=== PATIENT | male | born 1945 | race Caucasian/White ===

== ENCOUNTER 2017-10-22 08:46 | Emergency (ER) | payer MEDICARE, OTHER ==
[~2017-10-22] VITALS: Ht 172.7 cm; Wt 59.0 kg
[2017-10-22 09:38] VITALS: BP 142/72
[2017-10-22] MEDS ORDERED: KETOROLAC TROMETH 60MG/2ML VIAL IM ONE (10:30)
== END 2017-10-22 10:53 | disposition home or self-care (01) ==
LOC: ER 08:46 → EDBD 08:46 → ER 10:53
DX: G89.29 Other chronic pain (principal); M54.2 Cervicalgia; I10 Essential (primary) hypertension; Z76.0 Encounter for issue of repeat prescription
CPT/HCPCS: 96372; 99283; J1885

== ENCOUNTER 2017-12-22 16:56 | Inpatient (IN) | payer MEDICARE ==
[~2017-12-22] VITALS: Ht 180.3 cm; Wt 46.2 kg
[2017-12-22 18:33] LABS: Mean Corpuscular Hgb Conc. 31.4 g/dL (32.0-36.0); Red Cell Distribution Width 16.2 % (11.8-14.3)
[2017-12-22 18:35] LABS: Hematocrit 27.3 % (41.0-53.0); Hemoglobin 8.6 g/dL (13.5-17.5); Mean Corpuscular Hemoglobin 26.7 pg (28.0-32.0); Red Blood Cells 3.21 10^6/uL (4.5-5.90)
[2017-12-22 18:52] LABS: Platelet Count (auto) 809 10^3/uL (140-450); White Blood Cell 33.4 10^3/uL (4.4-10.8)
[2017-12-22 18:53] LABS: Band Neutrophils % (manual) 0; Basophils % (manual) 0 (0.0-2.0); Blast Cells 0; Eosinophils % (manual) 0 (0-7); Metamyelocytes % 0; Myelocytes % 0; Promyelocytes % 0; Reactive Lymphocytes 0
[2017-12-22 18:56] LABS: Alanine Aminotransferase 19 U/L (16-61); Albumin 1.8 g/dL (3.4-5.0); Alkaline Phosphatase 98 U/L (45-117); Anion Gap 6 (5-15); Aspartate Aminotransferase 17 U/L (15-37); BUN/Creatinine Ratio 33.3; Bilirubin, Total 0.3 mg/dL (0.2-1.0); Blood Urea Nitrogen 27 mg/dL (7-18); Calcium 8.7 mg/dL (8.5-10.1); Carbon Dioxide 30 mmol/L (21-32); Chloride 109 mmol/L (98-107); GFR African American 121 mL/min; GFR Non-African American 100 mL/min; Glucose 103 mg/dL (74-106); Magnesium 2.7 mg/dL (1.6-2.6); Potassium 4.1 mmol/L (3.5-5.1); Sodium 145 mmol/L (136-145); Total Protein 7.5 g/dL (6.4-8.2)
[2017-12-22 19:09] LABS: Lymphocytes % (manual) 3 (10.0-50.0); Monocytes % (manual) 4 (0-12)
[2017-12-22] MEDS ORDERED: SODIUM CHLORIDE 0.9% 1,000 ML IVB ONE (19:22)
[2017-12-22 20:43] LABS: INR 1.08 (0.9-1.15); Prothrombin Time 11.8 sec (9.37-12.3)
[2017-12-22] MEDS ORDERED: AZITHROMYCIN 500MG/ 250ML 250 ML IV ONE (20:45)
[2017-12-22] MEDS ORDERED: cefTRIAXone 1GM/10ml IVPUSH 10 ML IV ONE (20:45)
[2017-12-22 21:23] LABS: Urine Bacteria FEW /hpf (None Seen); Urine Blood Negative /uL (Negative); Urine Specific Gravity 1.022 (1.001-1.035); Urine WBC 4 /hpf (0 - 3)
[2017-12-22] MEDS ORDERED: PANTOPRAZOLE 40 MG/10 ML VIAL IV ONE ×2 (21:45→22:20)
[2017-12-22] MEDS: SODIUM CHLORIDE 0.9% 1,000 ML IV SCH (21:45)
[2017-12-22] MEDS ORDERED: ACETAMINOPHEN 325 MG TAB PO PRN (21:45)
[2017-12-22] MEDS ORDERED: MORPHINE SULFATE 8mg/ml INJ SDV IV PRN (21:45)
[2017-12-22] MEDS ORDERED: TEMAZEPAM 15 MG CAP PO PRN (21:45)
[2017-12-22] MEDS ORDERED: ONDANSETRON HCL 4 MG/2 ML VIAL IV PRN (21:45)
[2017-12-22 23:16] VITALS: BP 115/97
[2017-12-23] VITALS (7 sets, daily range): BP systolic 107–134; BP diastolic 58–73
[2017-12-23 07:18] LABS: Albumin 1.5 g/dL (3.4-5.0); BUN/Creatinine Ratio 30.7; Bilirubin, Total 0.3 mg/dL (0.2-1.0); Calcium 8.1 mg/dL (8.5-10.1); Potassium 3.7 mmol/L (3.5-5.1); Total Protein 6.5 g/dL (6.4-8.2)
[2017-12-23 07:25] LABS: Platelet Count (auto) 729 10^3/uL (140-450); Red Blood Cells 3.13 10^6/uL (4.5-5.90); Red Cell Distribution Width 16.4 % (11.8-14.3)
[2017-12-23 07:29] LABS: Hemoglobin 8.4 g/dL (13.5-17.5); Mean Corpuscular Hemoglobin 26.9 pg (28.0-32.0); Mean Corpuscular Hgb Conc. 31.2 g/dL (32.0-36.0); Mean Corpuscular Volume 86.2 fL (80.0-100.0)
[2017-12-23 08:11] LABS: White Blood Cell 30.4 10^3/uL (4.4-10.8)
[2017-12-23 08:12] LABS: Band Neutrophils % (manual) 0; Basophils % (manual) 0 (0.0-2.0); Blast Cells 0; Eosinophils % (manual) 0 (0-7); Metamyelocytes % 0; Myelocytes % 0; Promyelocytes % 0; Reactive Lymphocytes 0
[2017-12-23] MEDS: amLODIPine BESYLATE 5 MG TAB PO SCH (09:01)
[2017-12-23] MEDS: PANTOPRAZOLE 40 MG/10 ML VIAL IV SCH (09:02)
[2017-12-23] MEDS: ENOXAPARIN SOD 40 MG/0.4 ML SYRINGE SC SCH (09:02)
[2017-12-23] MEDS: HYDROcodone-ACET 5/325MG TAB PO PRN ×3 (09:14→21:56)
[2017-12-23] MEDS: SODIUM CHLORIDE 0.9% 1,000 ML IV SCH ×2 (09:31→21:33)
[2017-12-23] MEDS ORDERED: LISINOPRIL 10 MG TAB PO SCH (10:00)
[2017-12-23] MEDS ORDERED: IOHEXOL 300 MG/ML 100ML BOTTLE IJ ONE (11:49)
[2017-12-23 12:08] LABS: Lymphocytes % (manual) 3 (10.0-50.0); Monocytes % (manual) 4 (0-12)
[2017-12-23] MEDS: ALBUTEROL SULF 2.5 MG/0.5ML(0.5%) NEB SOLN NEB PRN (20:50)
[2017-12-23] MEDS: PRO-STAT 64 30ML GT SCH (21:55)
[2017-12-23] MEDS: Nutren Pulmonary 250ml Bottle PO SCH (21:55)
[2017-12-23] MEDS: AZITHROMYCIN 500MG/ 250ML 250 ML IV SCH (21:55)
[2017-12-23] MEDS ORDERED: cefTRIAXone 1GM/10ml IVPUSH 10 ML IV SCH (22:00)
[2017-12-24] MEDS: MORPHINE SULFATE 8mg/ml INJ SDV IV PRN ×2 (00:34→06:36)
[2017-12-24] MEDS: HYDROcodone-ACET 5/325MG TAB PO PRN ×4 (02:03→22:54)
[2017-12-24 05:01] VITALS: BP 137/70
[2017-12-24 05:41] LABS: Basophils # (auto) 0 uL; Eosinophils # (auto) 0 uL; Hemoglobin 9.1 g/dL (13.5-17.5)
[2017-12-24 05:45] LABS: Hematocrit 29.4 % (41.0-53.0); Lymphocytes # (auto) 0.7 uL; Lymphocytes % (auto) 2.1 % (10.0-50.0); Mean Corpuscular Hemoglobin 26.2 pg (28.0-32.0); Mean Corpuscular Hgb Conc. 30.9 g/dL (32.0-36.0); Monocytes # (auto) 1.7 uL; Neutrophils # (auto) 31.2 uL; Neutrophils % (auto) 92.9 % (37.0-80.0); Red Blood Cells 3.46 10^6/uL (4.5-5.90); Red Cell Distribution Width 16.1 % (11.8-14.3)
[2017-12-24 05:47] LABS: Platelet Count (auto) 761 10^3/uL (140-450); White Blood Cell 33.6 10^3/uL (4.4-10.8)
[2017-12-24] MEDS: Nutren Pulmonary 250ml Bottle PO SCH ×3 (06:00→22:00)
[2017-12-24 06:13] LABS: Calcium 8.1 mg/dL (8.5-10.1); Potassium 3.2 mmol/L (3.5-5.1)
[2017-12-24 09:00] VITALS: BP 109/76
[2017-12-24] MEDS: PANTOPRAZOLE 40 MG/10 ML VIAL IV SCH (09:41)
[2017-12-24] MEDS: ENOXAPARIN SOD 40 MG/0.4 ML SYRINGE SC SCH (09:42)
[2017-12-24] MEDS: amLODIPine BESYLATE 5 MG TAB PO SCH (09:43)
[2017-12-24] MEDS: PRO-STAT 64 30ML GT SCH ×2 (09:43→22:00)
[2017-12-24] MEDS ORDERED: VANCOMYCIN 1GM/250ML 250 ML IV ONE (10:00)
[2017-12-24] MEDS ORDERED: VANCOMYCIN PER PHARMACY 0 MG IV SCH (10:00)
[2017-12-24] MEDS: PIPERACILLIN-TAZOB 3.375GM 100 ML IV SCH ×2 (11:49→16:08)
[2017-12-24] MEDS ORDERED: POTASSIUM CHL 20 Meq TABLET PO ONE (12:15)
[2017-12-24] MEDS ORDERED: D5W/SOD CHL 0.45% 1,000 ML IV SCH (12:15)
[2017-12-24] MEDS ORDERED: FLUCONAZOLE 200MG/100ML 100 ML IV ONE (12:15)
[2017-12-24] MEDS ORDERED: VANCOMYCIN 750 MG in D5W 5% 250 ML IV SCH (13:00)
[2017-12-24 14:05] VITALS: BP 128/65
[2017-12-24] MEDS: VANCOMYCIN 750 MG in D5W 5% 250 ML IV SCH (15:15)
[2017-12-24 15:49] VITALS: BP 128/68
[2017-12-24] MEDS: D5W/SOD CHL 0.45%/KCL 40MEQ 1,000 ML IV SCH (17:53)
[2017-12-24 18:04] LABS: INR 1.09 (0.9-1.15); Partial Thromboplastin Time 32.8 sec (22.64-33.71); Prothrombin Time 11.9 sec (9.37-12.3)
[2017-12-24 19:50] VITALS: BP 123/69
[2017-12-24] MEDS: AZITHROMYCIN 500MG/ 250ML 250 ML IV SCH (21:29)
[2017-12-25] VITALS (46 sets, daily range): BP systolic 72–197; BP diastolic 50–188
[2017-12-25] MEDS: PIPERACILLIN-TAZOB 3.375GM 100 ML IV SCH ×5 (00:06→21:38)
[2017-12-25] MEDS: MORPHINE SULFATE 8mg/ml INJ SDV IV PRN (00:47)
[2017-12-25] MEDS: HYDROcodone-ACET 5/325MG TAB PO PRN (02:58)
[2017-12-25] MEDS: VANCOMYCIN 750 MG in D5W 5% 250 ML IV SCH ×2 (03:21→15:27)
[2017-12-25 05:29] LABS: Hematocrit 28.4 % (41.0-53.0); Hemoglobin 9.1 g/dL (13.5-17.5); Mean Corpuscular Hgb Conc. 31.9 g/dL (32.0-36.0); Mean Corpuscular Volume 84.7 fL (80.0-100.0); Platelet Count (auto) 716 10^3/uL (140-450); Red Blood Cells 3.35 10^6/uL (4.5-5.90); Red Cell Distribution Width 16.3 % (11.8-14.3)
[2017-12-25 05:51] LABS: Band Neutrophils % (manual) 0; Basophils % (manual) 0 (0.0-2.0); Blast Cells 0; Eosinophils % (manual) 0 (0-7); Metamyelocytes % 0; Myelocytes % 0; Promyelocytes % 0; Reactive Lymphocytes 0; White Blood Cell 30.1 10^3/uL (4.4-10.8)
[2017-12-25 05:52] LABS: Calcium 7.9 mg/dL (8.5-10.1); Magnesium 2.3 mg/dL (1.6-2.6); Potassium 3.3 mmol/L (3.5-5.1)
[2017-12-25] MEDS: Nutren Pulmonary 250ml Bottle PO SCH ×3 (06:00→21:38)
[2017-12-25] MEDS: D5W/SOD CHL 0.45%/KCL 40MEQ 1,000 ML IV SCH (06:20)
[2017-12-25] MEDS: ALBUTEROL SULF 2.5 MG/0.5ML(0.5%) NEB SOLN NEB PRN (09:30)
[2017-12-25] MEDS: FLUCONAZOLE 200MG/100ML 100 ML IV SCH (09:56)
[2017-12-25] MEDS: PANTOPRAZOLE 40 MG/10 ML VIAL IV SCH (09:57)
[2017-12-25] MEDS: ENOXAPARIN SOD 40 MG/0.4 ML SYRINGE SC SCH (10:00)
[2017-12-25] MEDS: PRO-STAT 64 30ML GT SCH ×2 (10:00→21:35)
[2017-12-25] MEDS: amLODIPine BESYLATE 5 MG TAB PO SCH (10:00)
[2017-12-25 10:07] LABS: Lymphocytes % (manual) 6 (10.0-50.0); Monocytes % (manual) 6 (0-12)
[2017-12-25] MEDS ORDERED: POTASSIUM CHLORIDE 40 MEQ in D5W/LACTATED RINGERS 1,000 ML IV SCH (10:45)
[2017-12-25] MEDS ORDERED: fentaNYL CITRATE 100 MCG/2 ML VL ONE (12:02)
[2017-12-25] MEDS ORDERED: HYDROmorphone HCL 2 MG/ML VL ONE (12:02)
[2017-12-25] MEDS ORDERED: MIDAZOLAM HCL 1MG/1ML-2 ML VIAL ONE ×2 (12:02→12:59)
[2017-12-25] MEDS ORDERED: ETOMIDATE (2MG/ML) 20ML VIAL IV ONE (12:05)
[2017-12-25] MEDS ORDERED: DEXAMETHASONE SOD PHOS 10MG/1ML VIAL INJ ONE (12:17)
[2017-12-25] MEDS ORDERED: PROPOFOL 10 MG/ML 20 ML IV ONE (12:17)
[2017-12-25] MEDS ORDERED: fentaNYL CITRATE 5 ML ONE (12:34)
[2017-12-25] MEDS ORDERED: ROCURONIUM 10MG/ML 10ML VIAL IV ONE (12:37)
[2017-12-25] MEDS: MIDAZOLAM DRIP 50 mg/50mL 50 ML IV SCH (14:22)
[2017-12-25] MEDS ORDERED: MIDAZOLAM DRIP 50 mg/50mL 50 ML IV ONE (14:28)
[2017-12-25] MEDS ORDERED: POTASSIUM CHL 20MEQ/100ML 100 ML IV ONE (14:30)
[2017-12-25] MEDS: AZITHROMYCIN 500MG/ 250ML 250 ML IV SCH (21:38)
[2017-12-26] VITALS (101 sets, daily range): BP systolic 0–145; BP diastolic -1–109
[2017-12-26] MEDS: MORPHINE SULFATE 8mg/ml INJ SDV IV PRN ×2 (02:42→16:30)
[2017-12-26] MEDS: VANCOMYCIN 750 MG in SODIUM CHL 0.9% 250 ML IV SCH ×2 (03:00→17:00)
[2017-12-26 03:13] LABS: Hemoglobin 8.9 g/dL (13.5-17.5)
[2017-12-26 03:17] LABS: Hematocrit 28.6 % (41.0-53.0); Mean Corpuscular Hemoglobin 26.7 pg (28.0-32.0); Mean Corpuscular Hgb Conc. 31.3 g/dL (32.0-36.0); Mean Corpuscular Volume 85.5 fL (80.0-100.0); Platelet Count (auto) 706 10^3/uL (140-450); Red Blood Cells 3.34 10^6/uL (4.5-5.90); Red Cell Distribution Width 15.9 % (11.8-14.3)
[2017-12-26 03:20] LABS: Albumin 1.3 g/dL (3.4-5.0); BUN/Creatinine Ratio 25.3; Calcium 7.4 mg/dL (8.5-10.1); Potassium 4.2 mmol/L (3.5-5.1)
[2017-12-26 03:23] LABS: Bilirubin, Total 0.3 mg/dL (0.2-1.0); Total Protein 5.5 g/dL (6.4-8.2)
[2017-12-26 03:43] LABS: Basophils % (manual) 0 (0.0-2.0); Blast Cells 0; Eosinophils % (manual) 0 (0-7); Lymphocytes % (manual) 0 (10.0-50.0); Metamyelocytes % 0; Myelocytes % 0; Promyelocytes % 0; Reactive Lymphocytes 0
[2017-12-26] MEDS: PIPERACILLIN-TAZOB 3.375GM 100 ML IV SCH ×3 (03:54→16:00)
[2017-12-26] MEDS: Nutren Pulmonary 250ml Bottle PO SCH ×3 (03:54→22:00)
[2017-12-26 05:01] LABS: Band Neutrophils % (manual) 4; Monocytes % (manual) 3 (0-12)
[2017-12-26 10:25] LABS: Hematocrit 26.4 % (41.0-53.0); Hemoglobin 8.3 g/dL (13.5-17.5)
[2017-12-26] MEDS: PANTOPRAZOLE 40 MG/10 ML VIAL IV SCH (10:26)
[2017-12-26 10:27] LABS: Mean Corpuscular Hemoglobin 26.9 pg (28.0-32.0); Mean Corpuscular Hgb Conc. 31.5 g/dL (32.0-36.0); Mean Corpuscular Volume 85.4 fL (80.0-100.0); Platelet Count (auto) 651 10^3/uL (140-450); Red Blood Cells 3.09 10^6/uL (4.5-5.90); Red Cell Distribution Width 16.3 % (11.8-14.3)
[2017-12-26] MEDS: FLUCONAZOLE 200MG/100ML 100 ML IV SCH (10:27)
[2017-12-26] MEDS: ENOXAPARIN SOD 40 MG/0.4 ML SYRINGE SC SCH (10:27)
[2017-12-26] MEDS: D5W/SOD CHL 0.45%/KCL 40MEQ 1,000 ML IV SCH (10:29)
[2017-12-26 10:31] LABS: White Blood Cell 39.2 10^3/uL (4.4-10.8)
[2017-12-26 10:32] LABS: Band Neutrophils % (manual) 0; Basophils % (manual) 0 (0.0-2.0); Blast Cells 0; Eosinophils % (manual) 0 (0-7); Metamyelocytes % 0; Myelocytes % 0; Promyelocytes % 0; Reactive Lymphocytes 0
[2017-12-26] MEDS: PRO-STAT 64 30ML GT SCH ×2 (10:35→22:00)
[2017-12-26 10:46] LABS: BUN/Creatinine Ratio 29.1; Calcium 7.7 mg/dL (8.5-10.1); Potassium 4.2 mmol/L (3.5-5.1)
[2017-12-26 11:21] LABS: Lymphocytes % (manual) 3 (10.0-50.0)
[2017-12-26 11:22] LABS: Monocytes % (manual) 1 (0-12)
[2017-12-26] MEDS: D5W/SOD CHL 0.45% 1,000 ML IV SCH (13:44)
[2017-12-26] MEDS: MIDAZOLAM DRIP 50 mg/50mL 50 ML IV SCH ×2 (14:22→21:40)
[2017-12-26] MEDS: AZITHROMYCIN 500MG/ 250ML 250 ML IV SCH (22:00)
[2017-12-27] VITALS (105 sets, daily range): BP systolic 106–164; BP diastolic 56–87
[2017-12-27] MEDS: PIPERACILLIN-TAZOB 3.375GM 100 ML IV SCH ×5 (00:30→22:29)
[2017-12-27] MEDS: D5W/SOD CHL 0.45% 1,000 ML IV SCH ×2 (00:44→14:20)
[2017-12-27] MEDS: VANCOMYCIN 750 MG in SODIUM CHL 0.9% 250 ML IV SCH ×2 (03:21→16:00)
[2017-12-27 03:54] LABS: Hemoglobin 7.9 g/dL (13.5-17.5); Mean Corpuscular Hemoglobin 27.6 pg (28.0-32.0); Mean Corpuscular Hgb Conc. 32.7 g/dL (32.0-36.0); Mean Corpuscular Volume 84.5 fL (80.0-100.0); Platelet Count (auto) 592 10^3/uL (140-450); Red Blood Cells 2.84 10^6/uL (4.5-5.90); Red Cell Distribution Width 16.5 % (11.8-14.3)
[2017-12-27 04:10] LABS: Albumin 1.3 g/dL (3.4-5.0); BUN/Creatinine Ratio 27.3; Bilirubin, Total 0.2 mg/dL (0.2-1.0); Calcium 7.6 mg/dL (8.5-10.1); Potassium 3.5 mmol/L (3.5-5.1); Total Protein 5.8 g/dL (6.4-8.2)
[2017-12-27 04:20] LABS: White Blood Cell 34.2 10^3/uL (4.4-10.8)
[2017-12-27 04:21] LABS: Band Neutrophils % (manual) 0; Basophils % (manual) 0 (0.0-2.0); Blast Cells 0; Eosinophils % (manual) 0 (0-7); Metamyelocytes % 0; Reactive Lymphocytes 0
[2017-12-27 06:35] LABS: Lymphocytes % (manual) 3 (10.0-50.0); Monocytes % (manual) 4 (0-12); Myelocytes % 1; Promyelocytes % 1
[2017-12-27] MEDS: PRO-STAT 64 30ML GT SCH ×2 (10:00→22:28)
[2017-12-27] MEDS: Nutren Pulmonary 250ml Bottle PO SCH ×2 (10:17→14:00)
[2017-12-27] MEDS: ENOXAPARIN SOD 40 MG/0.4 ML SYRINGE SC SCH (10:40)
[2017-12-27] MEDS: PANTOPRAZOLE 40 MG/10 ML VIAL IV SCH (10:40)
[2017-12-27] MEDS: FLUCONAZOLE 200MG/100ML 100 ML IV SCH (10:45)
[2017-12-27] MEDS ORDERED: fentaNYL Drip 2500mCg/250mlNS 250 ML IV ONE (11:24)
[2017-12-27] MEDS: fentaNYL Drip 2500mCg/250mlNS 250 ML IV SCH (11:45)
[2017-12-27] MEDS ORDERED: MIDAZOLAM DRIP 50 mg/50mL 50 ML IV ONE (13:52)
[2017-12-27] MEDS: MIDAZOLAM DRIP 50 mg/50mL 50 ML IV SCH (14:00)
[2017-12-27] MEDS ORDERED: LIDOCAINE 1% (LOCAL ANESTH.) PF 5ml SDV ID ONE (14:45)
[2017-12-27] MEDS: ALBUMIN 25% 100 ML IV SCH ×2 (15:00→20:00)
[2017-12-27] MEDS ORDERED: Nutren Pulmonary 1 Liter GT SCH (15:15)
[2017-12-27] MEDS: SODIUM CHLOR 0.9% PF (SALINE LOCK) 10ML VIAL/SYR IV SCH (22:28)
[2017-12-27] MEDS: AZITHROMYCIN 500MG/ 250ML 250 ML IV SCH (22:29)
[2017-12-28] VITALS (97 sets, daily range): BP systolic 112–157; BP diastolic 50–83
[2017-12-28] MEDS: D5W/SOD CHL 0.45% 1,000 ML IV SCH ×2 (03:15→16:35)
[2017-12-28] MEDS: PIPERACILLIN-TAZOB 3.375GM 100 ML IV SCH ×4 (04:00→22:00)
[2017-12-28] MEDS: VANCOMYCIN 750 MG in SODIUM CHL 0.9% 250 ML IV SCH ×2 (04:18→15:00)
[2017-12-28] MEDS: ALBUMIN 25% 100 ML IV SCH (04:25)
[2017-12-28 04:39] LABS: Basophils # (auto) 0 uL; Eosinophils # (auto) 0.3 uL; Hemoglobin 8.4 g/dL (13.5-17.5); Lymphocytes # (auto) 1.3 uL; Mean Corpuscular Hemoglobin 28.3 pg (28.0-32.0)
[2017-12-28 04:44] LABS: Basophils % (auto) 0.1 % (0.0-2.0); Eosinophils % (auto) 1.6 % (0.0-7.0); Hematocrit 25.3 % (41.0-53.0); Lymphocytes % (auto) 8.3 % (10.0-50.0); Mean Corpuscular Hgb Conc. 33.1 g/dL (32.0-36.0); Mean Corpuscular Volume 85.6 fL (80.0-100.0); Monocytes # (auto) 1.1 uL; Monocytes % (auto) 7.1 % (0.0-12.0); Neutrophils # (auto) 13.4 uL; Neutrophils % (auto) 82.9 % (37.0-80.0); Platelet Count (auto) 432 10^3/uL (140-450); Red Blood Cells 2.96 10^6/uL (4.5-5.90); Red Cell Distribution Width 15.2 % (11.8-14.3); White Blood Cell 16.2 10^3/uL (4.4-10.8)
[2017-12-28 05:02] LABS: Albumin 1.9 g/dL (3.4-5.0); Calcium 7.4 mg/dL (8.5-10.1); Potassium 3.2 mmol/L (3.5-5.1)
[2017-12-28 05:06] LABS: Bilirubin, Total 1.1 mg/dL (0.2-1.0); Total Protein 5.8 g/dL (6.4-8.2)
[2017-12-28] MEDS: ALBUTEROL SULF 2.5 MG/0.5ML(0.5%) NEB SOLN NEB PRN (06:45)
[2017-12-28] MEDS: FLUCONAZOLE 200MG/100ML 100 ML IV SCH (10:23)
[2017-12-28] MEDS: PANTOPRAZOLE 40 MG/10 ML VIAL IV SCH (10:23)
[2017-12-28] MEDS: POTASSIUM CHL 20MEQ/100ML 100 ML IV SCH ×3 (10:23→14:41)
[2017-12-28] MEDS: ENOXAPARIN SOD 40 MG/0.4 ML SYRINGE SC SCH (10:24)
[2017-12-28] MEDS: PRO-STAT 64 30ML GT SCH ×2 (10:25→21:41)
[2017-12-28] MEDS: SODIUM CHLOR 0.9% PF (SALINE LOCK) 10ML VIAL/SYR IV SCH ×2 (10:25→21:42)
[2017-12-28] MEDS: fentaNYL Drip 2500mCg/250mlNS 250 ML IV SCH (11:26)
[2017-12-28] MEDS: MIDAZOLAM DRIP 50 mg/50mL 50 ML IV SCH (14:30)
[2017-12-28] MEDS: AZITHROMYCIN 500MG/ 250ML 250 ML IV SCH (22:00)
[2017-12-29] VITALS (97 sets, daily range): BP systolic 94–152; BP diastolic 55–103
[2017-12-29] MEDS: VANCOMYCIN 750 MG in SODIUM CHL 0.9% 250 ML IV SCH ×2 (03:27→15:30)
[2017-12-29 03:42] LABS: Basophils # (auto) 0.1 uL; Hemoglobin 9.7 g/dL (13.5-17.5); Monocytes # (auto) 1.3 uL
[2017-12-29 03:44] LABS: Basophils % (auto) 0.6 % (0.0-2.0); Eosinophils # (auto) 0.6 uL; Eosinophils % (auto) 3.1 % (0.0-7.0); Hematocrit 29.6 % (41.0-53.0); Lymphocytes # (auto) 1.2 uL; Lymphocytes % (auto) 6.8 % (10.0-50.0); Mean Corpuscular Hemoglobin 28.4 pg (28.0-32.0); Mean Corpuscular Hgb Conc. 32.8 g/dL (32.0-36.0); Mean Corpuscular Volume 86.3 fL (80.0-100.0); Monocytes % (auto) 7.2 % (0.0-12.0); Neutrophils % (auto) 82.3 % (37.0-80.0); Platelet Count (auto) 523 10^3/uL (140-450); Red Blood Cells 3.43 10^6/uL (4.5-5.90); Red Cell Distribution Width 15.6 % (11.8-14.3); White Blood Cell 18.2 10^3/uL (4.4-10.8)
[2017-12-29 03:55] LABS: BUN/Creatinine Ratio 22.4; Calcium 7.9 mg/dL (8.5-10.1); Potassium 3.6 mmol/L (3.5-5.1)
[2017-12-29] MEDS: PIPERACILLIN-TAZOB 3.375GM 100 ML IV SCH ×4 (04:00→22:00)
[2017-12-29] MEDS: PRO-STAT 64 30ML GT SCH ×2 (10:00→22:00)
[2017-12-29] MEDS: PANTOPRAZOLE 40 MG/10 ML VIAL IV SCH (10:35)
[2017-12-29] MEDS: FLUCONAZOLE 200MG/100ML 100 ML IV SCH (10:35)
[2017-12-29] MEDS: SODIUM CHLOR 0.9% PF (SALINE LOCK) 10ML VIAL/SYR IV SCH ×2 (10:36→22:00)
[2017-12-29] MEDS: ENOXAPARIN SOD 40 MG/0.4 ML SYRINGE SC SCH (10:36)
[2017-12-29] MEDS: MIDAZOLAM DRIP 50 mg/50mL 50 ML IV SCH ×2 (10:36→20:21)
[2017-12-29] MEDS: fentaNYL Drip 2500mCg/250mlNS 250 ML IV SCH (15:44)
[2017-12-29] MEDS: D5W/SOD CHL 0.45% 1,000 ML IV SCH ×2 (19:15→22:10)
[2017-12-29] MEDS: AZITHROMYCIN 500MG/ 250ML 250 ML IV SCH (22:00)
[2017-12-30] VITALS (106 sets, daily range): BP systolic 87–154; BP diastolic 50–118
[2017-12-30] MEDS: MIDAZOLAM DRIP 50 mg/50mL 50 ML IV SCH (02:00)
[2017-12-30] MEDS: VANCOMYCIN 750 MG in SODIUM CHL 0.9% 250 ML IV SCH (03:00)
[2017-12-30] MEDS: PIPERACILLIN-TAZOB 3.375GM 100 ML IV SCH ×4 (04:00→22:30)
[2017-12-30 04:15] LABS: Hemoglobin 9.7 g/dL (13.5-17.5)
[2017-12-30 04:18] LABS: Hematocrit 29.7 % (41.0-53.0); Mean Corpuscular Hemoglobin 28.3 pg (28.0-32.0); Mean Corpuscular Hgb Conc. 32.8 g/dL (32.0-36.0); Mean Corpuscular Volume 86.1 fL (80.0-100.0); Platelet Count (auto) 569 10^3/uL (140-450); Red Blood Cells 3.44 10^6/uL (4.5-5.90); Red Cell Distribution Width 16.2 % (11.8-14.3); White Blood Cell 20.1 10^3/uL (4.4-10.8)
[2017-12-30 04:50] LABS: Basophils % (manual) 0 (0.0-2.0); Blast Cells 0; Promyelocytes % 0; Reactive Lymphocytes 0
[2017-12-30 05:26] LABS: Band Neutrophils % (manual) 1; Eosinophils % (manual) 1 (0-7); Lymphocytes % (manual) 7 (10.0-50.0); Metamyelocytes % 1; Monocytes % (manual) 11 (0-12); Myelocytes % 1
[2017-12-30] MEDS: fentaNYL Drip 2500mCg/250mlNS 250 ML IV SCH (07:30)
[2017-12-30 07:44] LABS: BUN/Creatinine Ratio 16.7; Calcium 7.7 mg/dL (8.5-10.1); Potassium 3.3 mmol/L (3.5-5.1)
[2017-12-30] MEDS: D5W/SOD CHL 0.45% 1,000 ML IV SCH ×2 (08:35→21:55)
[2017-12-30] MEDS: ENOXAPARIN SOD 40 MG/0.4 ML SYRINGE SC SCH (09:25)
[2017-12-30] MEDS: PANTOPRAZOLE 40 MG/10 ML VIAL IV SCH (09:25)
[2017-12-30] MEDS: SODIUM CHLOR 0.9% PF (SALINE LOCK) 10ML VIAL/SYR IV SCH ×2 (09:25→22:00)
[2017-12-30] MEDS: PRO-STAT 64 30ML GT SCH ×2 (09:25→22:00)
[2017-12-30] MEDS: FLUCONAZOLE 200MG/100ML 100 ML IV SCH (11:37)
[2017-12-30] MEDS: POTASSIUM CHL 20MEQ/100ML 100 ML IV SCH ×2 (12:31→13:59)
[2017-12-30] MEDS: ALBUMIN 25% 100 ML IV SCH ×2 (12:51→20:16)
[2017-12-30] MEDS ORDERED: VANCOMYCIN 750 MG in D5W 5% 250 ML IV SCH (15:00)
[2017-12-30] MEDS ORDERED: VANCOMYCIN 750 MG in SODIUM CHL 0.9% 250 ML IV SCH (20:00)
[2017-12-30] MEDS: AZITHROMYCIN 500MG/ 250ML 250 ML IV SCH (22:00)
[2017-12-31] VITALS (97 sets, daily range): BP systolic 102–183; BP diastolic 50–110
[2017-12-31] MEDS ORDERED: VANCOMYCIN 750 MG in D5W 5% 250 ML IV SCH (03:00)
[2017-12-31] MEDS: ALBUMIN 25% 100 ML IV SCH (04:08)
[2017-12-31 04:17] LABS: Basophils # (auto) 0.1 uL; Eosinophils # (auto) 0.5 uL; Eosinophils % (auto) 2.3 % (0.0-7.0); Hemoglobin 8.9 g/dL (13.5-17.5); Mean Corpuscular Volume 87.1 fL (80.0-100.0); Monocytes # (auto) 2.4 uL; Neutrophils % (auto) 81.3 % (37.0-80.0); Platelet Count (auto) 607 10^3/uL (140-450)
[2017-12-31 04:21] LABS: Basophils % (auto) 0.5 % (0.0-2.0); Lymphocytes % (auto) 4.8 % (10.0-50.0); Mean Corpuscular Hemoglobin 28.6 pg (28.0-32.0); Mean Corpuscular Hgb Conc. 32.9 g/dL (32.0-36.0); Monocytes % (auto) 11.1 % (0.0-12.0); Neutrophils # (auto) 17.6 uL; Red Blood Cells 3.09 10^6/uL (4.5-5.90); Red Cell Distribution Width 16.5 % (11.8-14.3); White Blood Cell 21.7 10^3/uL (4.4-10.8)
[2017-12-31] MEDS: PIPERACILLIN-TAZOB 3.375GM 100 ML IV SCH ×4 (04:30→23:00)
[2017-12-31 04:35] LABS: Albumin 2.4 g/dL (3.4-5.0); BUN/Creatinine Ratio 13.8; Calcium 7.9 mg/dL (8.5-10.1); Magnesium 2.2 mg/dL (1.6-2.6); Potassium 3.8 mmol/L (3.5-5.1)
[2017-12-31 04:37] LABS: Bilirubin, Total 0.6 mg/dL (0.2-1.0); Total Protein 6.3 g/dL (6.4-8.2)
[2017-12-31] MEDS: MORPHINE SULFATE 8mg/ml INJ SDV IV PRN ×3 (06:13→19:44)
[2017-12-31] MEDS ORDERED: VANCOMYCIN 1GM/250ML 250 ML IV SCH (09:00)
[2017-12-31] MEDS: SODIUM CHLOR 0.9% PF (SALINE LOCK) 10ML VIAL/SYR IV SCH ×2 (10:00→22:00)
[2017-12-31] MEDS: PANTOPRAZOLE 40 MG/10 ML VIAL IV SCH (10:00)
[2017-12-31] MEDS: D5W/SOD CHL 0.45% 1,000 ML IV SCH (10:00)
[2017-12-31] MEDS: PRO-STAT 64 30ML GT SCH ×2 (10:00→22:00)
[2017-12-31] MEDS: ENOXAPARIN SOD 40 MG/0.4 ML SYRINGE SC SCH (10:00)
[2017-12-31] MEDS: FLUCONAZOLE 200MG/100ML 100 ML IV SCH (10:25)
[2017-12-31] MEDS: fentaNYL Drip 2500mCg/250mlNS 250 ML IV SCH (11:26)
[2017-12-31] MEDS ORDERED: FUROSEMIDE 40 MG/4 ML VIAL ONE (17:11)
[2017-12-31] MEDS ORDERED: FUROSEMIDE 40 MG/4 ML VIAL IV ONE (17:15)
[2017-12-31] MEDS: AZITHROMYCIN 500MG/ 250ML 250 ML IV SCH (22:00)
[2017-12-31] MEDS ORDERED: MIDAZOLAM HCL 5 MG/ML-1ML VIAL ONE (22:28)
[2017-12-31] MEDS ORDERED: SUCCINYLCHOLINE CHLORIDE 20 MG/ML 10ML VIAL IV ONE ×2 (22:29→22:30)
[2017-12-31] MEDS ORDERED: MIDAZOLAM HCL 5 MG/ML-1ML VIAL IM ONE (22:30)
[2017-12-31] MEDS: LINEZOLID 600MG/300ML 300 ML IV SCH (22:30)
[2017-12-31] MEDS ORDERED: ETOMIDATE (2MG/ML) 20ML VIAL IV ONE ×2 (22:32→22:33)
[2018-01-01] VITALS (98 sets, daily range): BP systolic 73–134; BP diastolic 41–102
[2018-01-01] MEDS: D5W/SOD CHL 0.45% 1,000 ML IV SCH ×3 (00:35→23:15)
[2018-01-01] MEDS: fentaNYL Drip 2500mCg/250mlNS 250 ML IV SCH (02:30)
[2018-01-01 03:51] LABS: Eosinophils # (auto) 0 uL; Mean Corpuscular Hemoglobin 28.2 pg (28.0-32.0); Mean Corpuscular Hgb Conc. 32.9 g/dL (32.0-36.0)
[2018-01-01 03:55] LABS: Basophils # (auto) 0.1 uL; Basophils % (auto) 0.3 % (0.0-2.0); Eosinophils % (auto) 0.1 % (0.0-7.0); Hematocrit 27.8 % (41.0-53.0); Hemoglobin 9.1 g/dL (13.5-17.5); Lymphocytes # (auto) 0.9 uL; Lymphocytes % (auto) 3.8 % (10.0-50.0); Mean Corpuscular Volume 85.7 fL (80.0-100.0); Monocytes % (auto) 8.1 % (0.0-12.0); Neutrophils # (auto) 21.4 uL; Neutrophils % (auto) 87.7 % (37.0-80.0); Platelet Count (auto) 621 10^3/uL (140-450); Red Blood Cells 3.24 10^6/uL (4.5-5.90); Red Cell Distribution Width 16.4 % (11.8-14.3); White Blood Cell 24.4 10^3/uL (4.4-10.8)
[2018-01-01] MEDS: PIPERACILLIN-TAZOB 3.375GM 100 ML IV SCH ×4 (04:00→22:00)
[2018-01-01 04:06] LABS: Albumin 2.6 g/dL (3.4-5.0); Calcium 8.5 mg/dL (8.5-10.1); Potassium 3.1 mmol/L (3.5-5.1)
[2018-01-01 04:09] LABS: BUN/Creatinine Ratio 16.3; Bilirubin, Total 0.7 mg/dL (0.2-1.0); Total Protein 7.3 g/dL (6.4-8.2)
[2018-01-01] MEDS: MORPHINE SULFATE 8mg/ml INJ SDV IV PRN (05:58)
[2018-01-01] MEDS: MIDAZOLAM DRIP 50 mg/50mL 50 ML IV SCH (06:44)
[2018-01-01] MEDS ORDERED: MIDAZOLAM DRIP 50 mg/50mL 50 ML IV ONE (06:51)
[2018-01-01] MEDS: PRO-STAT 64 30ML GT SCH ×2 (10:00→22:00)
[2018-01-01] MEDS: ENOXAPARIN SOD 40 MG/0.4 ML SYRINGE SC SCH (10:17)
[2018-01-01] MEDS: PANTOPRAZOLE 40 MG/10 ML VIAL IV SCH (10:17)
[2018-01-01] MEDS: FLUCONAZOLE 200MG/100ML 100 ML IV SCH ×2 (10:17→14:02)
[2018-01-01] MEDS: SODIUM CHLOR 0.9% PF (SALINE LOCK) 10ML VIAL/SYR IV SCH ×2 (10:17→22:00)
[2018-01-01] MEDS: LINEZOLID 600MG/300ML 300 ML IV SCH (10:18)
[2018-01-01] MEDS: POTASSIUM CHL 20MEQ/100ML 100 ML IV SCH ×2 (13:39→15:15)
[2018-01-01] MEDS: AZITHROMYCIN 500MG/ 250ML 250 ML IV SCH (22:00)
[2018-01-02] VITALS (96 sets, daily range): BP systolic 91–155; BP diastolic 56–99
[2018-01-02] MEDS: fentaNYL Drip 2500mCg/250mlNS 250 ML IV SCH (03:00)
[2018-01-02] MEDS: PIPERACILLIN-TAZOB 3.375GM 100 ML IV SCH ×4 (04:00→21:44)
[2018-01-02 04:11] LABS: Basophils # (auto) 0.1 uL; Hemoglobin 8.4 g/dL (13.5-17.5); Lymphocytes # (auto) 1.5 uL; White Blood Cell 14.6 10^3/uL (4.4-10.8)
[2018-01-02 04:13] LABS: Basophils % (auto) 0.6 % (0.0-2.0); Eosinophils # (auto) 0.4 uL; Eosinophils % (auto) 2.8 % (0.0-7.0); Hematocrit 26.5 % (41.0-53.0); Lymphocytes % (auto) 10.2 % (10.0-50.0); Mean Corpuscular Hemoglobin 27.7 pg (28.0-32.0); Mean Corpuscular Hgb Conc. 31.8 g/dL (32.0-36.0); Mean Corpuscular Volume 87.2 fL (80.0-100.0); Monocytes # (auto) 1.8 uL; Monocytes % (auto) 12.6 % (0.0-12.0); Neutrophils # (auto) 10.7 uL; Neutrophils % (auto) 73.8 % (37.0-80.0); Platelet Count (auto) 659 10^3/uL (140-450); Red Blood Cells 3.03 10^6/uL (4.5-5.90); Red Cell Distribution Width 15.9 % (11.8-14.3)
[2018-01-02 04:20] LABS: BUN/Creatinine Ratio 18.3; Calcium 7.9 mg/dL (8.5-10.1); Potassium 3.3 mmol/L (3.5-5.1)
[2018-01-02] MEDS: MIDAZOLAM DRIP 50 mg/50mL 50 ML IV SCH ×2 (06:44→18:44)
[2018-01-02] MEDS: D5W/SOD CHL 0.45% 1,000 ML IV SCH ×2 (09:44→18:44)
[2018-01-02] MEDS: PRO-STAT 64 30ML GT SCH ×2 (09:45→21:50)
[2018-01-02] MEDS: SODIUM CHLOR 0.9% PF (SALINE LOCK) 10ML VIAL/SYR IV SCH ×2 (09:59→21:55)
[2018-01-02] MEDS: ENOXAPARIN SOD 40 MG/0.4 ML SYRINGE SC SCH (09:59)
[2018-01-02] MEDS: LINEZOLID 600MG/300ML 300 ML IV SCH ×2 (09:59→21:44)
[2018-01-02] MEDS: PANTOPRAZOLE 40 MG/10 ML VIAL IV SCH (09:59)
[2018-01-02] MEDS: POTASSIUM CHL 20MEQ/100ML 100 ML IV SCH ×2 (12:40→14:01)
[2018-01-02] MEDS ORDERED: FLUCONAZOLE 200MG/100ML 200 ML IV ONE (12:45)
[2018-01-02] MEDS ORDERED: FLUCONAZOLE 200MG/100ML 100 ML IV SCH (13:00)
[2018-01-02] MEDS: AZITHROMYCIN 500MG/ 250ML 250 ML IV SCH (23:49)
[2018-01-03] VITALS (65 sets, daily range): BP systolic 104–165; BP diastolic 60–115
[2018-01-03 02:44] LABS: Urine Amorphous Crystal MANY /hpf (None Seen); Urine Bacteria NONE SEEN /hpf (None Seen); Urine Blood Negative /uL (Negative); Urine Hyaline Cast FEW /lpf (0 - 2); Urine Mucus FEW (None Seen); Urine Specific Gravity 1.019 (1.001-1.035); Urine WBC 2 /hpf (0 - 3)
[2018-01-03 03:43] LABS: Basophils # (auto) 0.2 uL; Eosinophils # (auto) 0.4 uL
[2018-01-03 03:45] LABS: Eosinophils % (auto) 2.5 % (0.0-7.0); Hematocrit 24.4 % (41.0-53.0); Lymphocytes # (auto) 1.4 uL; Lymphocytes % (auto) 8.3 % (10.0-50.0); Mean Corpuscular Hemoglobin 28.3 pg (28.0-32.0); Mean Corpuscular Hgb Conc. 32.8 g/dL (32.0-36.0); Mean Corpuscular Volume 86.4 fL (80.0-100.0); Monocytes # (auto) 1.7 uL; Monocytes % (auto) 10.4 % (0.0-12.0); Neutrophils # (auto) 12.9 uL; Neutrophils % (auto) 77.8 % (37.0-80.0); Platelet Count (auto) 580 10^3/uL (140-450); Red Blood Cells 2.82 10^6/uL (4.5-5.90); White Blood Cell 16.6 10^3/uL (4.4-10.8)
[2018-01-03] MEDS: PIPERACILLIN-TAZOB 3.375GM 100 ML IV SCH ×4 (04:02→22:49)
[2018-01-03 04:03] LABS: Calcium 7.9 mg/dL (8.5-10.1); Magnesium 2.4 mg/dL (1.6-2.6); Potassium 3.4 mmol/L (3.5-5.1)
[2018-01-03 04:05] LABS: BUN/Creatinine Ratio 17.4
[2018-01-03] MEDS: D5W/SOD CHL 0.45% 1,000 ML IV SCH ×2 (05:15→12:00)
[2018-01-03] MEDS: SODIUM CHLOR 0.9% PF (SALINE LOCK) 10ML VIAL/SYR IV SCH ×2 (10:00→22:04)
[2018-01-03] MEDS: PRO-STAT 64 30ML GT SCH ×2 (10:00→22:10)
[2018-01-03] MEDS ORDERED: FLUCONAZOLE 200MG/100ML 100 ML IV SCH (10:00)
[2018-01-03] MEDS: PANTOPRAZOLE 40 MG/10 ML VIAL IV SCH (10:18)
[2018-01-03] MEDS: FLUCONAZOLE 200MG/100ML 100 ML IV SCH ×2 (10:18→11:26)
[2018-01-03] MEDS: ENOXAPARIN SOD 40 MG/0.4 ML SYRINGE SC SCH (10:18)
[2018-01-03] MEDS ORDERED: POTASSIUM CHL 10% (20 MEQ/15ML) 15ml ORAL SOLN GT ONE (11:45)
[2018-01-03] MEDS: LINEZOLID 600MG/300ML 300 ML IV SCH ×2 (12:00→21:08)
[2018-01-03] MEDS: ALBUTEROL SULF 2.5 MG/0.5ML(0.5%) NEB SOLN NEB PRN (18:43)
[2018-01-03] MEDS: AZITHROMYCIN 500MG/ 250ML 250 ML IV SCH (22:04)
[2018-01-03] MEDS: MORPHINE SULFATE 8mg/ml INJ SDV IV PRN (22:54)
[2018-01-04] VITALS (17 sets, daily range): BP systolic 128–162; BP diastolic 67–93
[2018-01-04] MEDS: PIPERACILLIN-TAZOB 3.375GM 100 ML IV SCH ×4 (03:53→23:10)
[2018-01-04 04:10] LABS: Eosinophils # (auto) 0.1 uL; Lymphocytes # (auto) 1.2 uL; Mean Corpuscular Hemoglobin 28.2 pg (28.0-32.0); Monocytes # (auto) 1.3 uL
[2018-01-04 04:11] LABS: Basophils # (auto) 0.2 uL; Basophils % (auto) 0.9 % (0.0-2.0); Eosinophils % (auto) 0.7 % (0.0-7.0); Hematocrit 24.7 % (41.0-53.0); Lymphocytes % (auto) 7.3 % (10.0-50.0); Mean Corpuscular Hgb Conc. 32.8 g/dL (32.0-36.0); Mean Corpuscular Volume 85.9 fL (80.0-100.0); Monocytes % (auto) 7.8 % (0.0-12.0); Neutrophils # (auto) 13.7 uL; Neutrophils % (auto) 83.3 % (37.0-80.0); Platelet Count (auto) 632 10^3/uL (140-450); Red Blood Cells 2.88 10^6/uL (4.5-5.90); Red Cell Distribution Width 16.2 % (11.8-14.3); White Blood Cell 16.4 10^3/uL (4.4-10.8)
[2018-01-04 04:12] LABS: Hemoglobin 8.2 g/dL (13.5-17.5)
[2018-01-04] MEDS: D5W/SOD CHL 0.45% 1,000 ML IV SCH ×2 (04:25→21:19)
[2018-01-04] MEDS: MORPHINE SULFATE 8mg/ml INJ SDV IV PRN ×4 (06:20→23:00)
[2018-01-04] MEDS: ALBUTEROL SULF 2.5 MG/0.5ML(0.5%) NEB SOLN NEB PRN (06:49)
[2018-01-04] MEDS ORDERED: POTASSIUM CHL 10% (20 MEQ/15ML) 15ml ORAL SOLN GT ONE (08:45)
[2018-01-04] MEDS: FLUCONAZOLE 200MG/100ML 100 ML IV SCH ×2 (09:37→11:22)
[2018-01-04] MEDS: ENOXAPARIN SOD 40 MG/0.4 ML SYRINGE SC SCH (09:37)
[2018-01-04] MEDS: LINEZOLID 600MG/300ML 300 ML IV SCH (09:37)
[2018-01-04] MEDS: SODIUM CHLOR 0.9% PF (SALINE LOCK) 10ML VIAL/SYR IV SCH ×2 (09:37→21:20)
[2018-01-04] MEDS: PANTOPRAZOLE 40 MG/10 ML VIAL IV SCH (09:37)
[2018-01-04] MEDS: PRO-STAT 64 30ML GT SCH ×2 (10:00→21:19)
[2018-01-04] MEDS ORDERED: ACETAMINOPHEN 325 MG TAB PO PRN (11:00)
[2018-01-04] MEDS ORDERED: ALBUTEROL SULF 2.5 MG/0.5ML(0.5%) NEB SOLN NEB PRN (11:00)
[2018-01-04] MEDS ORDERED: ONDANSETRON HCL 4 MG/2 ML VIAL IV PRN (11:00)
[2018-01-04] MEDS: ACETYLCYSTEINE 10 %(100MG/ML) SOL 4ML NEB SCH ×2 (13:45→18:26)
[2018-01-04] MEDS: ALBUTEROL SULF 2.5 MG/0.5ML(0.5%) NEB SOLN NEB SCH ×2 (13:45→18:26)
[2018-01-04] MEDS ORDERED: POTASSIUM PHOSPHATE 26.4 MEQ in SODIUM CHL 0.9% 100 ML IV ONE (15:45)
[2018-01-04] MEDS: AZITHROMYCIN 500MG/ 250ML 250 ML IV SCH (21:20)
[2018-01-05] VITALS (7 sets, daily range): BP systolic 110–136; BP diastolic 75–97
[2018-01-05] MEDS: LINEZOLID 600MG/300ML 300 ML IV SCH ×3 (00:26→22:00)
[2018-01-05] MEDS: ALBUTEROL SULF 2.5 MG/0.5ML(0.5%) NEB SOLN NEB SCH ×5 (00:34→23:56)
[2018-01-05] MEDS: ACETYLCYSTEINE 10 %(100MG/ML) SOL 4ML NEB SCH ×5 (00:34→23:55)
[2018-01-05] MEDS: MORPHINE SULFATE 8mg/ml INJ SDV IV PRN ×5 (03:12→21:03)
[2018-01-05] MEDS: PIPERACILLIN-TAZOB 3.375GM 100 ML IV SCH ×4 (04:32→23:02)
[2018-01-05 06:13] LABS: BUN/Creatinine Ratio 10.1; Calcium 8.2 mg/dL (8.5-10.1); Magnesium 2.5 mg/dL (1.6-2.6); Phosphorus 2.8 mg/dL (2.5-4.90); Potassium 3.5 mmol/L (3.5-5.1)
[2018-01-05] MEDS: PRO-STAT 64 30ML GT SCH (09:20)
[2018-01-05] MEDS: FLUCONAZOLE 200MG/100ML 100 ML IV SCH ×2 (09:21→10:30)
[2018-01-05] MEDS: ENOXAPARIN SOD 40 MG/0.4 ML SYRINGE SC SCH (09:21)
[2018-01-05] MEDS: SODIUM CHLOR 0.9% PF (SALINE LOCK) 10ML VIAL/SYR IV SCH ×2 (09:22→22:00)
[2018-01-05] MEDS ORDERED: TPN PER PHARMACY 0 ML IV SCH (11:45)
[2018-01-05] MEDS ORDERED: PANTOPRAZOLE 40 MG/10 ML VIAL IV ONE (11:45)
[2018-01-05 12:42] LABS: Albumin 2.3 g/dL (3.4-5.0); Pre Albumin 13.6 mg/dL (20.0-40.0)
[2018-01-05] MEDS: D5W/SOD CHL 0.45% 1,000 ML IV SCH ×2 (13:45→19:00)
[2018-01-05] MEDS ORDERED: POTASSIUM CHL 20MEQ/100ML 100 ML IV ONE (14:30)
[2018-01-05] MEDS: InsuLIN REG 1unit/0.01ml Soln (100units/ml) SC SCH (18:00)
[2018-01-05] MEDS ORDERED: DEXTROSE (50%) 50ML SYRG IV SCH (18:00)
[2018-01-05] MEDS: ACCU-CHEK COMFORT CURVE STRIP VI SCH (18:00)
[2018-01-05] MEDS ORDERED: TPN PER PHARMACY IV NR ×11 (20:00)
[2018-01-05] MEDS: AZITHROMYCIN 500MG/ 250ML 250 ML IV SCH (20:19)
[2018-01-06] VITALS (7 sets, daily range): BP systolic 116–151; BP diastolic 71–95
[2018-01-06] MEDS: ACCU-CHEK COMFORT CURVE STRIP VI SCH ×4 (00:27→17:46)
[2018-01-06] MEDS: InsuLIN REG 1unit/0.01ml Soln (100units/ml) SC SCH ×4 (00:27→17:46)
[2018-01-06] MEDS: MORPHINE SULFATE 8mg/ml INJ SDV IV PRN (02:49)
[2018-01-06] MEDS: PIPERACILLIN-TAZOB 3.375GM 100 ML IV SCH ×4 (04:00→22:00)
[2018-01-06 06:45] LABS: Basophils # (auto) 0.2 uL; Eosinophils # (auto) 0.2 uL; Hemoglobin 8.4 g/dL (13.5-17.5); White Blood Cell 13.8 10^3/uL (4.4-10.8)
[2018-01-06 06:51] LABS: Basophils % (auto) 1.4 % (0.0-2.0); Eosinophils % (auto) 1.8 % (0.0-7.0); Hematocrit 25.2 % (41.0-53.0); Lymphocytes % (auto) 6.9 % (10.0-50.0); Mean Corpuscular Hemoglobin 28.9 pg (28.0-32.0); Mean Corpuscular Hgb Conc. 33.6 g/dL (32.0-36.0); Monocytes # (auto) 1.1 uL; Monocytes % (auto) 8.2 % (0.0-12.0); Neutrophils # (auto) 11.3 uL; Neutrophils % (auto) 81.7 % (37.0-80.0); Nucleated Red Blood Cells % 0.1 %; Platelet Count (auto) 688 10^3/uL (140-450); Red Blood Cells 2.93 10^6/uL (4.5-5.90); Red Cell Distribution Width 16.6 % (11.8-14.3)
[2018-01-06] MEDS: ACETYLCYSTEINE 10 %(100MG/ML) SOL 4ML NEB SCH ×3 (07:05→18:59)
[2018-01-06] MEDS: ALBUTEROL SULF 2.5 MG/0.5ML(0.5%) NEB SOLN NEB SCH ×3 (07:05→18:59)
[2018-01-06 07:17] LABS: Albumin 2.3 g/dL (3.4-5.0); BUN/Creatinine Ratio 15.3; Bilirubin, Total 0.5 mg/dL (0.2-1.0); Calcium 8.5 mg/dL (8.5-10.1); Magnesium 2.3 mg/dL (1.6-2.6); Phosphorus 2.4 mg/dL (2.5-4.90); Potassium 3.8 mmol/L (3.5-5.1); Total Protein 7.3 g/dL (6.4-8.2)
[2018-01-06] MEDS ORDERED: ETOMIDATE (2MG/ML) 20ML VIAL IV ONE (09:55)
[2018-01-06] MEDS ORDERED: FUROSEMIDE 40 MG/4 ML VIAL ONE (09:57)
[2018-01-06] MEDS ORDERED: MIDAZOLAM HCL 1MG/1ML-2 ML VIAL ONE (09:57)
[2018-01-06] MEDS ORDERED: LORazepam 2MG/ML-1ML VIAL ONE ×2 (10:07→19:00)
[2018-01-06] MEDS ORDERED: FUROSEMIDE 40 MG/4 ML VIAL IV ONE (10:15)
[2018-01-06] MEDS ORDERED: LORazepam 2MG/ML-1ML VIAL IV ONE ×2 (10:15→19:00)
[2018-01-06] MEDS: ENOXAPARIN SOD 40 MG/0.4 ML SYRINGE SC SCH (10:38)
[2018-01-06] MEDS: PANTOPRAZOLE 40 MG/10 ML VIAL IV SCH (10:40)
[2018-01-06] MEDS: SODIUM CHLOR 0.9% PF (SALINE LOCK) 10ML VIAL/SYR IV SCH ×2 (10:40→21:18)
[2018-01-06] MEDS: FLUCONAZOLE 200MG/100ML 100 ML IV SCH ×2 (10:40→11:51)
[2018-01-06] MEDS ORDERED: SODIUM PHOSP 20MEQ(15MMOL) IN NS 100 ML IV ONE (11:00)
[2018-01-06] MEDS: LINEZOLID 600MG/300ML 300 ML IV SCH ×2 (12:00→21:18)
[2018-01-06] MEDS ORDERED: TPN PER PHARMACY IV NR ×12 (20:00)
[2018-01-06] MEDS: AZITHROMYCIN 500MG/ 250ML 250 ML IV SCH (20:06)
[2018-01-07] MEDS: D5W/SOD CHL 0.45% 1,000 ML IV SCH ×2 (00:18→20:00)
[2018-01-07] MEDS: ACCU-CHEK COMFORT CURVE STRIP VI SCH ×5 (00:19→23:46)
[2018-01-07] MEDS: InsuLIN REG 1unit/0.01ml Soln (100units/ml) SC SCH ×5 (00:19→23:46)
[2018-01-07] MEDS: ALBUTEROL SULF 2.5 MG/0.5ML(0.5%) NEB SOLN NEB SCH ×4 (00:21→19:18)
[2018-01-07] MEDS: ACETYLCYSTEINE 10 %(100MG/ML) SOL 4ML NEB SCH ×4 (00:22→19:18)
[2018-01-07] MEDS: MORPHINE SULFATE 8mg/ml INJ SDV IV PRN ×5 (03:16→20:52)
[2018-01-07] MEDS: PIPERACILLIN-TAZOB 3.375GM 100 ML IV SCH ×4 (04:00→22:12)
[2018-01-07 04:01] VITALS: BP 119/80
[2018-01-07 06:27] LABS: Albumin 2.4 g/dL (3.4-5.0); BUN/Creatinine Ratio 24.2; Bilirubin, Total 0.4 mg/dL (0.2-1.0); Calcium 8.6 mg/dL (8.5-10.1); Magnesium 2.7 mg/dL (1.6-2.6); Phosphorus 3.2 mg/dL (2.5-4.90); Potassium 3.7 mmol/L (3.5-5.1); Total Protein 7.6 g/dL (6.4-8.2)
[2018-01-07 08:15] VITALS: BP 113/70
[2018-01-07] MEDS: PANTOPRAZOLE 40 MG/10 ML VIAL IV SCH (09:41)
[2018-01-07] MEDS: FLUCONAZOLE 200MG/100ML 100 ML IV SCH ×2 (09:41→11:04)
[2018-01-07] MEDS: LINEZOLID 600MG/300ML 300 ML IV SCH ×2 (09:41→20:52)
[2018-01-07] MEDS: SODIUM CHLOR 0.9% PF (SALINE LOCK) 10ML VIAL/SYR IV SCH ×2 (09:42→20:53)
[2018-01-07] MEDS: ENOXAPARIN SOD 40 MG/0.4 ML SYRINGE SC SCH (09:42)
[2018-01-07 12:00] VITALS: BP 124/75
[2018-01-07 16:00] VITALS: BP 117/67
[2018-01-07] MEDS: AZITHROMYCIN 500MG/ 250ML 250 ML IV SCH (19:51)
[2018-01-07 19:54] VITALS: BP 125/75
[2018-01-07] MEDS ORDERED: SODIUM ACETATE IV NR ×11 (20:00)
[2018-01-07] MEDS ORDERED: SODIUM CHLORIDE IV NR ×11 (20:00)
[2018-01-07] MEDS ORDERED: FAT EMULSION IV NR ×11 (20:00)
[2018-01-07] MEDS ORDERED: [UNRECOGNIZED DRUG - OTHER] IV NR ×11 (20:00)
[2018-01-07 23:30] VITALS: BP 131/76
[2018-01-07] MEDS: LORazepam 2MG/ML-1ML VIAL IV PRN (23:45)
[2018-01-08] MEDS: ACETYLCYSTEINE 10 %(100MG/ML) SOL 4ML NEB SCH ×4 (00:48→18:28)
[2018-01-08] MEDS: ALBUTEROL SULF 2.5 MG/0.5ML(0.5%) NEB SOLN NEB SCH ×4 (00:48→18:28)
[2018-01-08 04:00] VITALS: BP 116/67
[2018-01-08] MEDS: PIPERACILLIN-TAZOB 3.375GM 100 ML IV SCH ×3 (04:17→18:54)
[2018-01-08 05:33] LABS: Albumin 2.3 g/dL (3.4-5.0); Calcium 8.6 mg/dL (8.5-10.1); Magnesium 2.4 mg/dL (1.6-2.6); Potassium 4.2 mmol/L (3.5-5.1)
[2018-01-08 05:47] LABS: Bilirubin, Total 0.4 mg/dL (0.2-1.0); Total Protein 7.4 g/dL (6.4-8.2)
[2018-01-08] MEDS: InsuLIN REG 1unit/0.01ml Soln (100units/ml) SC SCH ×3 (05:50→18:05)
[2018-01-08] MEDS: ACCU-CHEK COMFORT CURVE STRIP VI SCH ×3 (05:50→18:05)
[2018-01-08 05:52] LABS: Phosphorus 2.8 mg/dL (2.5-4.90); Pre Albumin 20.7 mg/dL (20.0-40.0)
[2018-01-08 08:00] VITALS: BP 132/74
[2018-01-08 09:02] LABS: Eosinophils # (auto) 0.5 uL; Eosinophils % (auto) 3.2 % (0.0-7.0); Lymphocytes # (auto) 1.2 uL; Neutrophils # (auto) 12.3 uL
[2018-01-08 09:04] LABS: Basophils # (auto) 0.3 uL; Basophils % (auto) 1.9 % (0.0-2.0); Hematocrit 25.1 % (41.0-53.0); Lymphocytes % (auto) 7.7 % (10.0-50.0); Mean Corpuscular Hemoglobin 27.5 pg (28.0-32.0); Mean Corpuscular Hgb Conc. 31.7 g/dL (32.0-36.0); Mean Corpuscular Volume 86.8 fL (80.0-100.0); Monocytes # (auto) 1.3 uL; Monocytes % (auto) 8.4 % (0.0-12.0); Neutrophils % (auto) 78.8 % (37.0-80.0); Platelet Count (auto) 603 10^3/uL (140-450); Red Blood Cells 2.89 10^6/uL (4.5-5.90); Red Cell Distribution Width 17.3 % (11.8-14.3); White Blood Cell 15.6 10^3/uL (4.4-10.8)
[2018-01-08] MEDS: FLUCONAZOLE 200MG/100ML 100 ML IV SCH ×2 (10:03→11:36)
[2018-01-08] MEDS: ENOXAPARIN SOD 40 MG/0.4 ML SYRINGE SC SCH (10:03)
[2018-01-08] MEDS: PANTOPRAZOLE 40 MG/10 ML VIAL IV SCH (10:03)
[2018-01-08] MEDS: SODIUM CHLOR 0.9% PF (SALINE LOCK) 10ML VIAL/SYR IV SCH ×2 (10:04→22:00)
[2018-01-08] MEDS: LINEZOLID 600MG/300ML 300 ML IV SCH ×2 (10:06→22:52)
[2018-01-08] MEDS: HYDROcodone-ACET 5/325MG TAB PO PRN ×2 (11:36→15:34)
[2018-01-08 11:58] VITALS: BP 132/77
[2018-01-08 15:44] VITALS: BP 121/73
[2018-01-08 19:50] VITALS: BP 113/76
[2018-01-08] MEDS ORDERED: TPN PER PHARMACY IV NR ×11 (20:00)
[2018-01-08] MEDS ORDERED: SODIUM ACETATE IV NR ×11 (20:00)
[2018-01-08] MEDS ORDERED: FAT EMULSION IV NR ×11 (20:00)
[2018-01-08] MEDS ORDERED: [UNRECOGNIZED DRUG - OTHER] IV NR ×11 (20:00)
[2018-01-08] MEDS ORDERED: SODIUM CHLORIDE IV NR ×11 (20:00)
[2018-01-08] MEDS: MORPHINE SULFATE 8mg/ml INJ SDV IV PRN (20:19)
[2018-01-08] MEDS: AZITHROMYCIN 500MG/ 250ML 250 ML IV SCH (20:40)
[2018-01-08] MEDS: LORazepam 2MG/ML-1ML VIAL IV PRN (22:52)
[2018-01-08 23:52] VITALS: BP 126/85
[2018-01-09 00:01] VITALS: BP 126/85
[2018-01-09] MEDS: ACETYLCYSTEINE 10 %(100MG/ML) SOL 4ML NEB SCH ×4 (00:36→18:32)
[2018-01-09] MEDS: ALBUTEROL SULF 2.5 MG/0.5ML(0.5%) NEB SOLN NEB SCH ×4 (00:36→18:32)
[2018-01-09 04:00] VITALS: BP 126/73
[2018-01-09] MEDS: PIPERACILLIN-TAZOB 3.375GM 100 ML IV SCH ×2 (04:26→07:00)
[2018-01-09 05:43] LABS: Albumin 2.3 g/dL (3.4-5.0); BUN/Creatinine Ratio 28.1; Bilirubin, Total 0.4 mg/dL (0.2-1.0); Calcium 8.5 mg/dL (8.5-10.1); Magnesium 2.5 mg/dL (1.6-2.6); Phosphorus 2.8 mg/dL (2.5-4.90); Potassium 4.3 mmol/L (3.5-5.1); Total Protein 7.4 g/dL (6.4-8.2)
[2018-01-09] MEDS: InsuLIN REG 1unit/0.01ml Soln (100units/ml) SC SCH ×4 (06:00→18:04)
[2018-01-09] MEDS: ACCU-CHEK COMFORT CURVE STRIP VI SCH ×4 (06:00→18:04)
[2018-01-09 08:12] LABS: Basophils # (auto) 0.3 uL; Hemoglobin 7.7 g/dL (13.5-17.5); Lymphocytes # (auto) 1.2 uL; White Blood Cell 13.4 10^3/uL (4.4-10.8)
[2018-01-09 08:13] LABS: Basophils % (auto) 2.2 % (0.0-2.0); Eosinophils # (auto) 0.7 uL; Eosinophils % (auto) 5.1 % (0.0-7.0); Hematocrit 24.4 % (41.0-53.0); Lymphocytes % (auto) 8.9 % (10.0-50.0); Mean Corpuscular Hemoglobin 27.6 pg (28.0-32.0); Mean Corpuscular Hgb Conc. 31.7 g/dL (32.0-36.0); Monocytes # (auto) 1.2 uL; Monocytes % (auto) 8.9 % (0.0-12.0); Neutrophils % (auto) 74.9 % (37.0-80.0); Nucleated Red Blood Cells % 0.1 %; Platelet Count (auto) 520 10^3/uL (140-450)
[2018-01-09 08:30] VITALS: BP 110/60
[2018-01-09] MEDS: FLUCONAZOLE 200MG/100ML 100 ML IV SCH ×2 (10:01→11:06)
[2018-01-09] MEDS: PANTOPRAZOLE 40 MG/10 ML VIAL IV SCH (10:02)
[2018-01-09] MEDS: LEVOFLOXACIN 750MG 150 ML IV SCH (10:02)
[2018-01-09] MEDS: SODIUM CHLOR 0.9% PF (SALINE LOCK) 10ML VIAL/SYR IV SCH ×2 (10:02→21:40)
[2018-01-09] MEDS: ENOXAPARIN SOD 40 MG/0.4 ML SYRINGE SC SCH (10:02)
[2018-01-09] MEDS: LINEZOLID 600MG/300ML 300 ML IV SCH ×2 (10:02→23:20)
[2018-01-09] MEDS: MORPHINE SULFATE 8mg/ml INJ SDV IV PRN ×2 (10:03→15:54)
[2018-01-09 11:55] VITALS: BP 120/72
[2018-01-09] MEDS: metroNIDAZOLE 500MG/100ML 100 ML IV SCH ×2 (13:40→21:25)
[2018-01-09] MEDS: HYDROcodone-ACET 5/325MG TAB PO PRN (14:39)
[2018-01-09 15:45] VITALS: BP 135/81
[2018-01-09 20:00] VITALS: BP 135/82
[2018-01-09] MEDS ORDERED: TPN PER PHARMACY IV NR ×11 (20:00)
[2018-01-10] MEDS: ACCU-CHEK COMFORT CURVE STRIP VI SCH ×4 (00:01→17:45)
[2018-01-10] MEDS: InsuLIN REG 1unit/0.01ml Soln (100units/ml) SC SCH ×4 (00:04→17:46)
[2018-01-10] MEDS: ACETYLCYSTEINE 10 %(100MG/ML) SOL 4ML NEB SCH ×4 (00:48→18:32)
[2018-01-10] MEDS: ALBUTEROL SULF 2.5 MG/0.5ML(0.5%) NEB SOLN NEB SCH ×4 (00:48→18:32)
[2018-01-10 05:15] LABS: Basophils # (auto) 0.2 uL; Eosinophils # (auto) 0.3 uL; Hemoglobin 8.5 g/dL (13.5-17.5); Monocytes # (auto) 1.1 uL; Platelet Count (auto) 535 10^3/uL (140-450); White Blood Cell 13.7 10^3/uL (4.4-10.8)
[2018-01-10 05:17] LABS: Basophils % (auto) 1.3 % (0.0-2.0); Eosinophils % (auto) 2.4 % (0.0-7.0); Lymphocytes % (auto) 7.5 % (10.0-50.0); Mean Corpuscular Hemoglobin 28.5 pg (28.0-32.0); Mean Corpuscular Hgb Conc. 32.7 g/dL (32.0-36.0); Monocytes % (auto) 8.1 % (0.0-12.0); Neutrophils % (auto) 80.7 % (37.0-80.0); Nucleated Red Blood Cells % 0.1 %; Red Blood Cells 2.98 10^6/uL (4.5-5.90)
[2018-01-10 05:32] LABS: Albumin 2.4 g/dL (3.4-5.0); BUN/Creatinine Ratio 28.9; Calcium 9.1 mg/dL (8.5-10.1); Magnesium 2.3 mg/dL (1.6-2.6); Potassium 4.3 mmol/L (3.5-5.1)
[2018-01-10 05:35] LABS: Bilirubin, Total 0.4 mg/dL (0.2-1.0); Total Protein 8.1 g/dL (6.4-8.2)
[2018-01-10] MEDS: metroNIDAZOLE 500MG/100ML 100 ML IV SCH ×3 (06:18→21:27)
[2018-01-10 07:30] VITALS: BP 110/68
[2018-01-10 08:03] LABS: Phosphorus 2.6 mg/dL (2.5-4.90)
[2018-01-10] MEDS: FLUCONAZOLE 200MG/100ML 100 ML IV SCH ×2 (09:33→11:00)
[2018-01-10] MEDS: ENOXAPARIN SOD 40 MG/0.4 ML SYRINGE SC SCH (09:33)
[2018-01-10] MEDS: SODIUM CHLOR 0.9% PF (SALINE LOCK) 10ML VIAL/SYR IV SCH ×2 (09:33→21:28)
[2018-01-10] MEDS: LEVOFLOXACIN 750MG 150 ML IV SCH (09:33)
[2018-01-10] MEDS: LINEZOLID 600MG/300ML 300 ML IV SCH ×2 (09:33→22:24)
[2018-01-10] MEDS: PANTOPRAZOLE 40 MG/10 ML VIAL IV SCH (09:33)
[2018-01-10] MEDS: HYDROcodone-ACET 5/325MG TAB PO PRN (09:34)
[2018-01-10 11:50] VITALS: BP 131/79
[2018-01-10] MEDS: MORPHINE SULFATE 8mg/ml INJ SDV IV PRN (13:43)
[2018-01-10 15:45] VITALS: BP 134/78
[2018-01-10 19:56] VITALS: BP 150/79
[2018-01-10] MEDS ORDERED: TPN PER PHARMACY IV NR ×10 (20:00)
[2018-01-10 23:45] VITALS: BP 143/88
[2018-01-11] MEDS: ALBUTEROL SULF 2.5 MG/0.5ML(0.5%) NEB SOLN NEB SCH ×4 (00:27→20:11)
[2018-01-11] MEDS: ACETYLCYSTEINE 10 %(100MG/ML) SOL 4ML NEB SCH ×4 (00:27→20:11)
[2018-01-11 05:08] LABS: Eosinophils # (auto) 0.2 uL; Lymphocytes # (auto) 1.1 uL; Monocytes # (auto) 0.9 uL
[2018-01-11 05:09] LABS: Basophils # (auto) 0.3 uL; Basophils % (auto) 2.8 % (0.0-2.0); Eosinophils % (auto) 2.2 % (0.0-7.0); Hematocrit 25.7 % (41.0-53.0); Hemoglobin 8.6 g/dL (13.5-17.5); Lymphocytes % (auto) 11.3 % (10.0-50.0); Mean Corpuscular Hgb Conc. 33.4 g/dL (32.0-36.0); Mean Corpuscular Volume 86.9 fL (80.0-100.0); Neutrophils # (auto) 7.1 uL; Neutrophils % (auto) 74.7 % (37.0-80.0); Platelet Count (auto) 522 10^3/uL (140-450); Red Blood Cells 2.95 10^6/uL (4.5-5.90); Red Cell Distribution Width 17.2 % (11.8-14.3); White Blood Cell 9.5 10^3/uL (4.4-10.8)
[2018-01-11 05:29] LABS: Albumin 2.5 g/dL (3.4-5.0); BUN/Creatinine Ratio 29.6; Bilirubin, Total 0.3 mg/dL (0.2-1.0); Magnesium 2.1 mg/dL (1.6-2.6); Phosphorus 2.3 mg/dL (2.5-4.90); Potassium 3.8 mmol/L (3.5-5.1); Total Protein 7.7 g/dL (6.4-8.2)
[2018-01-11] MEDS: metroNIDAZOLE 500MG/100ML 100 ML IV SCH ×3 (05:47→22:27)
[2018-01-11] MEDS: HYDROcodone-ACET 5/325MG TAB PO PRN ×3 (05:48→15:21)
[2018-01-11] MEDS: ACCU-CHEK COMFORT CURVE STRIP VI SCH ×5 (06:00→23:39)
[2018-01-11] MEDS: InsuLIN REG 1unit/0.01ml Soln (100units/ml) SC SCH ×5 (06:00→23:39)
[2018-01-11 08:00] VITALS: BP 133/75
[2018-01-11] MEDS: ENOXAPARIN SOD 40 MG/0.4 ML SYRINGE SC SCH (09:57)
[2018-01-11] MEDS: PANTOPRAZOLE 40 MG/10 ML VIAL IV SCH (09:57)
[2018-01-11] MEDS: FLUCONAZOLE 200MG/100ML 100 ML IV SCH ×2 (09:57→12:30)
[2018-01-11] MEDS: LEVOFLOXACIN 750MG 150 ML IV SCH (09:57)
[2018-01-11] MEDS: LINEZOLID 600MG/300ML 300 ML IV SCH ×2 (09:57→22:28)
[2018-01-11] MEDS: SODIUM CHLOR 0.9% PF (SALINE LOCK) 10ML VIAL/SYR IV SCH ×2 (09:58→22:27)
[2018-01-11 11:48] VITALS: BP 135/77
[2018-01-11 16:03] VITALS: BP 147/88
[2018-01-11] MEDS ORDERED: TPN PER PHARMACY IV NR ×11 (20:00)
[2018-01-11] MEDS: MORPHINE SULFATE 8mg/ml INJ SDV IV PRN (20:13)
[2018-01-11 22:00] VITALS: BP 134/80
[2018-01-12] MEDS: ALBUTEROL SULF 2.5 MG/0.5ML(0.5%) NEB SOLN NEB SCH ×4 (00:33→20:18)
[2018-01-12] MEDS: ACETYLCYSTEINE 10 %(100MG/ML) SOL 4ML NEB SCH ×4 (00:34→20:18)
[2018-01-12] MEDS: MORPHINE SULFATE 8mg/ml INJ SDV IV PRN ×4 (00:38→19:38)
[2018-01-12 03:00] VITALS: BP 134/80
[2018-01-12 05:00] VITALS: BP 128/82
[2018-01-12] MEDS: InsuLIN REG 1unit/0.01ml Soln (100units/ml) SC SCH ×4 (06:00→23:46)
[2018-01-12 06:02] LABS: Basophils # (auto) 0.1 uL; Eosinophils # (auto) 0.2 uL; Hemoglobin 8.1 g/dL (13.5-17.5)
[2018-01-12 06:05] LABS: Basophils % (auto) 1.4 % (0.0-2.0); Eosinophils % (auto) 2.7 % (0.0-7.0); Hematocrit 24.7 % (41.0-53.0); Lymphocytes % (auto) 11.6 % (10.0-50.0); Mean Corpuscular Hemoglobin 28.4 pg (28.0-32.0); Mean Corpuscular Hgb Conc. 32.7 g/dL (32.0-36.0); Mean Corpuscular Volume 86.6 fL (80.0-100.0); Monocytes # (auto) 0.8 uL; Monocytes % (auto) 9.3 % (0.0-12.0); Neutrophils # (auto) 6.7 uL; Platelet Count (auto) 491 10^3/uL (140-450); Red Blood Cells 2.86 10^6/uL (4.5-5.90); Red Cell Distribution Width 17.2 % (11.8-14.3)
[2018-01-12] MEDS: metroNIDAZOLE 500MG/100ML 100 ML IV SCH ×3 (06:14→21:51)
[2018-01-12] MEDS: ACCU-CHEK COMFORT CURVE STRIP VI SCH ×4 (06:14→23:46)
[2018-01-12 06:23] LABS: Albumin 2.4 g/dL (3.4-5.0); BUN/Creatinine Ratio 32.9; Bilirubin, Total 0.3 mg/dL (0.2-1.0); Calcium 8.6 mg/dL (8.5-10.1); Magnesium 2.4 mg/dL (1.6-2.6); Phosphorus 2.7 mg/dL (2.5-4.90); Potassium 3.8 mmol/L (3.5-5.1); Total Protein 7.3 g/dL (6.4-8.2)
[2018-01-12 09:06] VITALS: BP 125/71
[2018-01-12] MEDS: SODIUM CHLOR 0.9% PF (SALINE LOCK) 10ML VIAL/SYR IV SCH ×2 (10:00→21:52)
[2018-01-12] MEDS: FLUCONAZOLE 200MG/100ML 100 ML IV SCH ×2 (11:00→17:00)
[2018-01-12] MEDS: BOOST PLUS 8 ounce PO SCH ×3 (12:00→21:52)
[2018-01-12 12:04] VITALS: BP 105/75
[2018-01-12] MEDS ORDERED: CATHFLO ACTIVASE (ALTEPLASE) 2 MG VIAL IV ONE (12:15)
[2018-01-12] MEDS: ENOXAPARIN SOD 40 MG/0.4 ML SYRINGE SC SCH (12:29)
[2018-01-12] MEDS: LINEZOLID 600MG/300ML 300 ML IV SCH ×2 (15:30→22:33)
[2018-01-12] MEDS: LEVOFLOXACIN 750MG 150 ML IV SCH (15:30)
[2018-01-12 17:30] VITALS: BP 126/73
[2018-01-12] MEDS: PANTOPRAZOLE 40 MG/10 ML VIAL IV SCH (19:30)
[2018-01-12] MEDS ORDERED: TPN PER PHARMACY IV NR ×10 (20:00)
[2018-01-12 22:00] VITALS: BP 123/74
[2018-01-13] MEDS: MORPHINE SULFATE 8mg/ml INJ SDV IV PRN ×6 (00:04→23:11)
[2018-01-13] MEDS: ACETYLCYSTEINE 10 %(100MG/ML) SOL 4ML NEB SCH ×5 (01:17→23:49)
[2018-01-13] MEDS: ALBUTEROL SULF 2.5 MG/0.5ML(0.5%) NEB SOLN NEB SCH ×5 (01:17→23:48)
[2018-01-13 05:05] VITALS: BP 137/78
[2018-01-13] MEDS: metroNIDAZOLE 500MG/100ML 100 ML IV SCH ×3 (05:45→21:55)
[2018-01-13] MEDS: InsuLIN REG 1unit/0.01ml Soln (100units/ml) SC SCH ×4 (05:56→23:52)
[2018-01-13] MEDS: ACCU-CHEK COMFORT CURVE STRIP VI SCH ×4 (05:56→23:51)
[2018-01-13] MEDS: BOOST PLUS 8 ounce PO SCH ×4 (06:00→21:57)
[2018-01-13 08:24] LABS: Albumin 2.4 g/dL (3.4-5.0); BUN/Creatinine Ratio 30.7; Bilirubin, Total 0.3 mg/dL (0.2-1.0); Calcium 8.5 mg/dL (8.5-10.1); Magnesium 1.9 mg/dL (1.6-2.6); Phosphorus 2.7 mg/dL (2.5-4.90); Potassium 4.1 mmol/L (3.5-5.1)
[2018-01-13 09:00] VITALS: BP 124/68
[2018-01-13 09:01] LABS: Eosinophils # (auto) 0.4 uL; Hemoglobin 8.3 g/dL (13.5-17.5); Monocytes # (auto) 1.1 uL
[2018-01-13 09:04] LABS: Basophils # (auto) 0.1 uL; Basophils % (auto) 1.5 % (0.0-2.0); Eosinophils % (auto) 4.6 % (0.0-7.0); Hematocrit 24.4 % (41.0-53.0); Lymphocytes # (auto) 1.3 uL; Mean Corpuscular Hemoglobin 29.4 pg (28.0-32.0); Mean Corpuscular Volume 86.6 fL (80.0-100.0); Monocytes % (auto) 11.7 % (0.0-12.0); Neutrophils # (auto) 6.1 uL; Neutrophils % (auto) 68.2 % (37.0-80.0); Platelet Count (auto) 433 10^3/uL (140-450); Red Blood Cells 2.82 10^6/uL (4.5-5.90); Red Cell Distribution Width 17.2 % (11.8-14.3)
[2018-01-13] MEDS: ENOXAPARIN SOD 40 MG/0.4 ML SYRINGE SC SCH (09:56)
[2018-01-13] MEDS: FLUCONAZOLE 200MG/100ML 100 ML IV SCH (09:56)
[2018-01-13] MEDS: LINEZOLID 600MG/300ML 300 ML IV SCH (09:56)
[2018-01-13] MEDS: PANTOPRAZOLE 40 MG/10 ML VIAL IV SCH (09:56)
[2018-01-13] MEDS: SODIUM CHLOR 0.9% PF (SALINE LOCK) 10ML VIAL/SYR IV SCH ×2 (10:05→21:56)
[2018-01-13] MEDS: LEVOFLOXACIN 750MG 150 ML IV SCH (12:00)
[2018-01-13 13:00] VITALS: BP 122/67
[2018-01-13 17:00] VITALS: BP 111/64
[2018-01-13 20:00] VITALS: BP 121/65
[2018-01-13] MEDS ORDERED: SODIUM ACETATE IV NR ×12 (20:00)
[2018-01-13] MEDS ORDERED: FAT EMULSION IV NR ×12 (20:00)
[2018-01-13] MEDS ORDERED: SODIUM CHLORIDE IV NR ×12 (20:00)
[2018-01-13] MEDS ORDERED: [UNRECOGNIZED DRUG - OTHER] IV NR ×12 (20:00)
[2018-01-13] MEDS: HYDROcodone-ACET 5/325MG TAB PO PRN (20:07)
[2018-01-13] MEDS ORDERED: LINEZOLID 600MG/300ML 300 ML IV SCH (22:00)
[2018-01-14] MEDS: HYDROcodone-ACET 5/325MG TAB PO PRN ×3 (02:49→13:20)
[2018-01-14 05:13] VITALS: BP 127/69
[2018-01-14] MEDS: MORPHINE SULFATE 8mg/ml INJ SDV IV PRN ×2 (05:28→10:13)
[2018-01-14] MEDS: ACCU-CHEK COMFORT CURVE STRIP VI SCH (05:34)
[2018-01-14] MEDS: InsuLIN REG 1unit/0.01ml Soln (100units/ml) SC SCH (05:34)
[2018-01-14] MEDS: BOOST PLUS 8 ounce PO SCH ×2 (05:34→12:09)
[2018-01-14] MEDS: metroNIDAZOLE 500MG/100ML 100 ML IV SCH (05:34)
[2018-01-14] MEDS: ALBUTEROL SULF 2.5 MG/0.5ML(0.5%) NEB SOLN NEB SCH ×2 (05:53→11:44)
[2018-01-14] MEDS: ACETYLCYSTEINE 10 %(100MG/ML) SOL 4ML NEB SCH (05:53)
[2018-01-14 05:57] LABS: Basophils # (auto) 0.1 uL; Eosinophils # (auto) 0.6 uL; Hemoglobin 8.4 g/dL (13.5-17.5); Red Blood Cells 2.86 10^6/uL (4.5-5.90); White Blood Cell 10.5 10^3/uL (4.4-10.8)
[2018-01-14 06:00] LABS: Basophils % (auto) 1.4 % (0.0-2.0); Eosinophils % (auto) 5.5 % (0.0-7.0); Hematocrit 24.8 % (41.0-53.0); Lymphocytes % (auto) 9.6 % (10.0-50.0); Mean Corpuscular Hemoglobin 29.3 pg (28.0-32.0); Mean Corpuscular Hgb Conc. 33.8 g/dL (32.0-36.0); Mean Corpuscular Volume 86.8 fL (80.0-100.0); Monocytes # (auto) 1.2 uL; Monocytes % (auto) 11.8 % (0.0-12.0); Neutrophils # (auto) 7.5 uL; Neutrophils % (auto) 71.7 % (37.0-80.0); Nucleated Red Blood Cells % 0.1 %; Platelet Count (auto) 453 10^3/uL (140-450); Red Cell Distribution Width 17.6 % (11.8-14.3)
[2018-01-14 06:08] LABS: Albumin 2.4 g/dL (3.4-5.0); BUN/Creatinine Ratio 31.9; Bilirubin, Total 0.4 mg/dL (0.2-1.0); Calcium 8.5 mg/dL (8.5-10.1); Magnesium 2.2 mg/dL (1.6-2.6); Phosphorus 2.6 mg/dL (2.5-4.90); Potassium 4.2 mmol/L (3.5-5.1); Total Protein 7.2 g/dL (6.4-8.2)
[2018-01-14 08:00] VITALS: BP 120/76
[2018-01-14] MEDS: LEVOFLOXACIN 750MG 150 ML IV SCH (08:44)
[2018-01-14] MEDS ORDERED: FLUCONAZOLE 200MG/100ML 100 ML IV SCH (10:00)
[2018-01-14] MEDS: ENOXAPARIN SOD 40 MG/0.4 ML SYRINGE SC SCH (10:12)
[2018-01-14] MEDS: PANTOPRAZOLE 40 MG/10 ML VIAL IV SCH (10:12)
[2018-01-14] MEDS: SODIUM CHLOR 0.9% PF (SALINE LOCK) 10ML VIAL/SYR IV SCH (10:12)
[2018-01-14] MEDS ORDERED: METR500T PO (10:42)
[2018-01-14] MEDS ORDERED: LEVO750T2 PO (10:42)
[2018-01-14] MEDS ORDERED: PANT40TA2 PO (10:42)
[2018-01-14 13:00] VITALS: BP 110/68
[2018-01-14] MEDS ORDERED: metroNIDAZOLE 500 MG TAB PO SCH (14:00)
[2018-01-14] MEDS ORDERED: SODIUM CHLORIDE IV NR ×11 (20:00)
[2018-01-14] MEDS ORDERED: SODIUM ACETATE IV NR ×11 (20:00)
[2018-01-14] MEDS ORDERED: FAT EMULSION IV NR ×11 (20:00)
[2018-01-14] MEDS ORDERED: [UNRECOGNIZED DRUG - OTHER] IV NR ×11 (20:00)
[2018-01-15] MEDS ORDERED: LEVOFLOXACIN 250 MG TAB PO SCH (10:00)
[2018-01-15] MEDS ORDERED: PANTOPRAZOLE 40 MG TAB PO SCH (10:00)
== END 2018-01-14 15:55 | DRG 853 ==
LOC: EDBD 16:56 → ER 16:58 → OVERFLOW 16:59 → EDBD 16:59 → WEST WING 23:12 → DOU IN ICU 12-24 15:19 → EAST 12-25 13:09 → ICU WEST 12-25 13:13 → DOU IN ICU 01-04 14:20 → TELE-CENTR 01-11 18:18
PROVIDERS: ADMIT Nurse Practitioner; ATTEND Internal Medicine
PROC: 5A1955Z Respiratory Ventilation, Greater than 96 Consecutive Hours (ICD-10-PCS; 2017-12-25)
PROC: 02HV33Z Insertion of Infusion Device into Superior Vena Cava, Percutaneous Approach (ICD-10-PCS; 2017-12-25)
PROC: 30233N1 Transfusion of Nonautologous Red Blood Cells into Peripheral Vein, Percutaneous Approach (ICD-10-PCS; 2017-12-25)
PROC: 0W9930Z Drainage of Right Pleural Cavity with Drainage Device, Percutaneous Approach (ICD-10-PCS; 2017-12-25)
PROC: 0BCK0ZZ Extirpation of Matter from Right Lung, Open Approach (ICD-10-PCS; principal; 2017-12-25 12:15)
PROC: 0BH17EZ Insertion of Endotracheal Airway into Trachea, Via Natural or Artificial Opening (ICD-10-PCS; 2017-12-26)
PROC: 5A09357 Assistance with Respiratory Ventilation, Less than 24 Consecutive Hours, Continuous Positive Airway Pressure (ICD-10-PCS; 2017-12-31)
PROC: 5A1945Z Respiratory Ventilation, 24-96 Consecutive Hours (ICD-10-PCS; 2018-01-01)
PROC: 0BH17EZ Insertion of Endotracheal Airway into Trachea, Via Natural or Artificial Opening (ICD-10-PCS; 2018-01-01)
PROC: 5A09357 Assistance with Respiratory Ventilation, Less than 24 Consecutive Hours, Continuous Positive Airway Pressure (ICD-10-PCS; 2018-01-06)
PROC: 5A09357 Assistance with Respiratory Ventilation, Less than 24 Consecutive Hours, Continuous Positive Airway Pressure (ICD-10-PCS; 2018-01-07)
DX: A41.9 Sepsis, unspecified organism (principal); J96.01 Acute respiratory failure with hypoxia; E43 Unspecified severe protein-calorie malnutrition; J85.0 Gangrene and necrosis of lung; J90 Pleural effusion, not elsewhere classified; D63.8 Anemia in other chronic diseases classified elsewhere; N39.0 Urinary tract infection, site not specified; N28.1 Cyst of kidney, acquired; J94.8 Other specified pleural conditions; R13.10 Dysphagia, unspecified; J44.0 Chronic obstructive pulmonary disease with (acute) lower respiratory infection; Z68.1 Body mass index [BMI] 19.9 or less, adult; I10 Essential (primary) hypertension; E87.6 Hypokalemia; K80.20 Calculus of gallbladder without cholecystitis without obstruction; N20.0 Calculus of kidney; N21.0 Calculus in bladder; Z98.1 Arthrodesis status
CPT/HCPCS: 36415; 36569; 36600; 70360; 71045; 71260; 74176; 76604; 80048; 80053; 80202; 81001; 82040; 82805; 82962; 83605; 83615; 83735; 84100; 84132; 84478; 84484; 85007; 85025; 85027; 85610; 85730; 86141; 86850; 86870; 86900; 86901; 86902; 86922; 87040; 87070; 87081; 87086; 87205; 92610; 93005; 94002; 94003; 94640; 94660; 94667; 94761; 96361; 96365; 96375; 97110; 97116; 97530; A4565; C9113; J0330; J1100; J1450; J1815; J1956; J2250; J2270; J2543; J2704; J3480; J3490; J7060; J7131; P9047